=== PATIENT | male | born 1950 | race Caucasian/White ===

== ENCOUNTER 2017-11-18 08:54 | Day surgery (SDC) | payer OTHER ==
[~2017-11-18] VITALS: Ht 182.9 cm; Wt 87.0 kg
[~2017-11-18 08:54] MED LIST: AMBIEN10 MG PO; BACLOFEN10 MG PO; COLACE100 MG PO; CONSTULOSE10 GM/15 M PO; COUMADIN2.5 MG PO; COUMADIN5 MG PO; CYCLOBENZAPRINE10 MG PO; DULCOLAX5 MG PO; ENDOCET 5-3251 EACH PO; HYDROCHLOROTHIA25 MG PO; IRON325 M1 PO; MOBIC15 MG PO; MS CONTIN,ORAMO15 M1 PO; OXAYDO5 MG PO; OXYCODONE HCL10 MG PO; OXYCODONE-ACET1 EACH PO; OXYCODONE-APAP1 EACH PO; OXYCONTIN60 MG PO; PERCOCET 5/31 TABLET PO; ROXICODONE15 MG PO; TYLENOL EXTRA500 MG PO; VISTARIL25 MG PO; ZOLPIDEM TARTRAT5 MG PO
[2017-11-18 09:33] VITALS: BP 164/93
[2017-11-18 16:18] VITALS: BP 148/91
[2017-11-18 19:30] VITALS: BP 122/62
[2017-11-18 23:36] VITALS: BP 126/70
[2017-11-19 03:36] VITALS: BP 155/76
[2017-11-19 07:45] VITALS: BP 158/88
[2017-11-19 08:50] LABS: HEMOGLOBIN 12.8 G/DL (12.5-16.6); MCV 91.3 FL (86-99)
[2017-11-19] MEDS ORDERED: OXYCODONE HCL5 MG PO (09:34)
== END 2017-11-19 10:45 | disposition home or self-care (01) ==
LOC: SDC 08:54 → 2SOUTH 12:30 → ENRESERV 13:10 → SDC 14:31 → ENRESERV 14:51 → 2EASTP 15:23 → ENRESERV 15:40 → 2SOUTH 15:41 → SDC 16:06 → 2EASTP 16:14
PROVIDERS: Orthopaedic Surgery
PROC: 0RRK0J6 Replacement of Left Shoulder Joint with Synthetic Substitute, Humeral Surface, Open Approach (ICD-10-PCS; principal; 2017-11-18)
DX: M19.012 Primary osteoarthritis, left shoulder (principal); I10 Essential (primary) hypertension; Z96.653 Presence of artificial knee joint, bilateral; Z96.641 Presence of right artificial hip joint; Z88.0 Allergy status to penicillin
CPT/HCPCS: 85014; 85018; 94799; G0378; J0131; J0360; J0690; J1100; J1170; J1885; J2250; J2405; J2710; J2795; J3010; J7030; J7050